=== PATIENT | female | born 1995 | race Caucasian/White ===

== ENCOUNTER 2019-07-03 13:32 | Day surgery (SDC) | payer BC ==
[~2019-07-03] VITALS: Ht 162.6 cm; Wt 96.4 kg
[2019-07-03] MEDS ORDERED: PANT40 (14:02)
[2019-07-03] MEDS ORDERED: Cryselle1 EACH (14:03)
--- NOTE | 2019-07-03 16:01 | NUR ---
07/03/19 1601 Noemy Mejia PT UPDATED OF DELAY IN START TIME DUE TO THE PREVIOUS CASE RUNNING LONGER THAN EXPECTED. PT DENIED WARM BLANKET. BED IN LOW, LOCKED POSITION, CALL LIGHT IN REACH.
== END 2019-07-03 17:45 | disposition home or self-care (01) ==
LOC: ORSCSDS 13:32
PROVIDERS: Student in an Organized Health Care Education/Training Program
PROC: 0DB58ZX Excision of Esophagus, Via Natural or Artificial Opening Endoscopic, Diagnostic (ICD-10-PCS; principal; 2019-07-03 15:00)
PROC: 0DB68ZX Excision of Stomach, Via Natural or Artificial Opening Endoscopic, Diagnostic (ICD-10-PCS; principal; 2019-07-03 15:00)
DX: K92.1 Melena (principal); K21.9 Gastro-esophageal reflux disease without esophagitis; B96.81 Helicobacter pylori [H. pylori] as the cause of diseases classified elsewhere; K20.0 Eosinophilic esophagitis; K44.9 Diaphragmatic hernia without obstruction or gangrene; K29.40 Chronic atrophic gastritis without bleeding; E66.01 Morbid (severe) obesity due to excess calories; Z68.37 Body mass index [BMI] 37.0-37.9, adult; Z79.899 Other long term (current) drug therapy
CPT/HCPCS: 88305; 88342; J2250; J2704; J7120